=== PATIENT | female | born 1980 | race Caucasian/White ===

== ENCOUNTER 2016-04-09 10:36 | Inpatient (IN) | payer MEDICAID ==
[~2016-04-09] VITALS: Ht 157.5 cm; Wt 59.0 kg
--- NOTE | ~2016-04-09 | DS ---
PATIENT'S NAME: CRIS DARBY [facility] AGE: 35 Y [address] ROOM: [address] [place], [place] [address] LOCATION: GPCU ADMIT DATE: 04/09/2016 Discharge Summary DISCHARGE DATE: 04/13/2016 FAMILY PHYSICIAN: Damian Centeno MD ATTENDING PHYSICIAN: Brendan Antonio DISCHARGE DIAGNOSES: 1. Hypoxia. 2. Respiratory distress. 3. Chronic pain syndrome. HISTORY OF PRESENT ILLNESS: Please see history and physical dictated by Dr. Brendan Antonio. HOSPITAL COURSE: The patient admitted to the hospital secondary to hypoxia and respiratory distress. She was seen in consultation by Dr. Taylor as well as Dr. Cervantes. She was started on Zosyn 4.5 grams IV and Levaquin 750 mg IV in the emergency room. IV Zosyn was continued at 3.375 IV every 6 hours and Levaquin 750 mg IV q.24 hours. She was given Zofran 4 mg IV every 6 hours as needed for nausea. Cardiac enzymes, serial enzymes were done x3. Solu- Medrol 60 mg IV every 8 hours was started. DuoNeb q.4 hours. Her Solu-Medrol was increased to 125 mg IV every 6 hours. She was consented for bronchoscopy. Solu-Medrol was decreased and she was placed on oral prednisone 30 mg 1 tablet twice daily. She was scheduled for a stress echocardiogram in followup. DISCHARGE MEDICATIONS: 1. Prozac 20 mg daily. 2. Neurontin 800 mg 1 tablet 3 times daily. 3. MS Contin 30 mg 3 times daily as per Pain physician. 4. Zyprexa 20 mg at bedtime. 5. Topamax 100 mg at bedtime. 6. Zanaflex 4 mg twice daily. 7. Excedrin Migraine as needed. 8. Levaquin 750 mg daily for 6 days. 9. Prednisone 30 mg twice a day for 3 days, 30 mg once daily for 3 days, 20 mg once daily for 3 days, 10 mg once daily for 3 days. She is to follow up with Dr. Medina in [address] Damian Centeno in 2 weeks. Lab and x-ray, please see chart for details. PATIENT'S NAME: CRIS DARBY [facility] AGE: 35 Y [address] ROOM: [place] [address] [facility] ADMIT DATE: 04/09/2016 Discharge Summary DISCHARGE DATE: 04/13/2016 FAMILY PHYSICIAN: Damian Centeno MD ATTENDING PHYSICIAN: Brendan Antonio MD CSM/modl /[id number] d: 05/12/[id number] t: 05/25/16 2317, DISCHARGE SUMMARY
--- NOTE | ~2016-04-09 | HP ---
PATIENT'S NAME: CRIS NAZARIO [facility] AGE: 35 Y [address] ROOM: [address] [place], [place] [address] LOCATION: GPCU ADMIT DATE: 04/09/2016 History & Physical DISCHARGE DATE: FAMILY PHYSICIAN: Damian Centeno MD ATTENDING PHYSICIAN: AMANDA LARKIN DATE OF SERVICE: 04/09/2016 CHIEF COMPLAINT: "I am short of breath." HISTORY OF PRESENT ILLNESS: Ms. Nazario is a 35-year-old female with a past medical history significant for fibromyalgia and chronic back pain, on chronic narcotic therapy among several others, who presented as an admission to the [facility] PCU from the [facility] Emergency Department for pneumonitis with sepsis. The patient was in her usual state of health when she began experiencing some illness. She had a sore throat, and was fatigued as well as had some body aches starting approximately 7 to 10 days ago. About a week ago, the patient was seen by [facility]. She had a swab of the throat for rapid strep test as well as a throat culture and mono testing. She was put on amoxicillin at that time, and thought she was doing a little bit better. About three days later, the patient was called by the [facility] provider and told that she had a Staphylococcus infection, and was asked how she was doing. At that point in time, the patient thought that she was doing a little bit better. 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 The patient was having a significant difficulty with being short of breath with her work, and so she called back to [facility] and told them that she was not feeling well, and that she was having more shortness of breath. She was switched from amoxicillin to Bactrim and given albuterol inhaler. It did not seem to help her that much, and so the patient progressively got worse, and was subsequently brought to the Emergency Department for further evaluation and management. The patient was seen at [facility] today, and was allowed to go by private vehicle to the Emergency Department. Upon reaching the Emergency Room, the patient had initial vital signs with pulse of 113, respirations of 18, temperature of 98.6, and the oxygen saturation was 59% on room air. She was reporting difficulty with breathing. She had a blood pressure that was low end of normal. She was given some IV fluids as well as DuoNeb at that time. She was also put on high-flow oxygen. PATIENT'S NAME: CRIS NAZARIO [facility] AGE: 35 Y [address] ROOM: [place] [address] LOCATION: GPCU ADMIT DATE: 04/09/2016 History & Physical DISCHARGE DATE: FAMILY PHYSICIAN: Damian Centeno MD ATTENDING PHYSICIAN: AMANDA LARKIN She had a number of laboratories performed. D-dimer was elevated at 1.38. She had a WBC of 22.5, platelets of 49, and neutrophils of 91%. She had a CO2 of 16, albumin of 2.9, elevated CPK of 324, CK-MB of 5.4, and elevated troponin of 0.118. ProBNP was elevated at 3211, as well as TSH thyroid-stimulating hormone was 0.85. Procalcitonin was 0.58. Influenza was negative. She also had 10 to 20 white blood cells, as well as 2 to 5 red blood cells, moderate epithelial cells, moderate yeasts, moderate bacteria, and 2+ mucus. She had negative beta-hCG. The patient, because of elevated D-dimer, had a CT of the chest which showed patchy ground-glass infiltrates. She was started on Levaquin as well as Zosyn. Upon my discussion with the patient, the patient reported the story as noted above. She did complain of some shortness of breath. There are really no fever or chills. She had no other acute complaints at the time. ALLERGIES: SHE HAS TWO ALLERGIES. CIPRO CAUSED GI GASTROINTESTINAL UPSET, AND THE OTHER IS PAXIL. PAST MEDICAL HISTORY: 1. Chronic back pain, currently on long-term narcotic therapy. 2. Seasonal allergies. 3. Depression. 4. History of renal stone. PAST SURGICAL HISTORY: Ureteral stent placement bilaterally. FAMILY HISTORY: The patient's father is still alive, and was reported to have no major medical problems. The patient's mother and maternal grandmother and grandfather have all from lung cancer. There have all been smokers. PATIENT'S NAME: CRIS NAZARIO [facility] AGE: 35 Y [address] ROOM: [place] [address] LOCATION: GPCU ADMIT DATE: 04/09/2016 History & Physical DISCHARGE DATE: FAMILY PHYSICIAN: Damian Centeno MD ATTENDING PHYSICIAN: AMANDA LARKIN SOCIAL HISTORY: Occupational History: The patient was starting a new job at [employer]. Habits: She smokes about a half pack per day, and she has done so since age 12. No illicit drugs she reported to me. Marital Status: She lives at home with her three children, as well as her cousin's two children and her fiance. She has been with her fiance eight years, and they are getting soon. PHYSICAL EXAMINATION: VITAL SIGNS: As noted above. GENERAL: Ill and slightly toxic appearing adult female, in no acute distress, lying in bed. HEENT: Head: Normocephalic and atraumatic. Eyes: Conjunctivae were clear. Sclerae were white. Ears, Nose, and Throat: Mucous membranes are moist. HEART: Tachycardic, but no murmurs, rubs, clicks, or gallops. LUNGS: Slight wheeze was present, but otherwise, good air movement. ABDOMEN: Soft, nontender, and nondistended. Bowel sounds are positive. EXTREMITIES: Warm and well perfused. No clubbing, cyanosis, or edema. SKIN: No notable rashes. NEUROLOGICAL: The patient admits to being slightly confused. Otherwise, no focal deficits on her examination. LABORATORY DATA AND IMAGING STUDIES: As per history of present illness. IMPRESSION AND PLAN: A 35-year-old female with pneumonitis, urinary tract infection, and sepsis. 1. Pneumonitis with patchy infiltrates present on chest x-ray with acute hypoxic respiratory failure 2. Sepsis secondary to #1. 3. Acute cystitis. 4. Elevated cardiac enzymes and D-dimer. The patient also overall has a septic picture here. She definitely qualifies for sepsis, and then appropriately started on Zosyn and Levaquin. We will continue with those. I have also added Solu-Medrol to the patient's regimen. Both Cardiology and Pulmonology have been consulted. The patient was getting a stat echocardiogram as I was speaking to her. We will trend out her enzymes as they were elevated. I think this is likely to be a demand ischemia for this patient as she has likely been hypoxic for some time and did not overall know it. We will continue with high-flow oxygen and DuoNeb as needed. Respiratory Therapy to see and evaluate. Again, we will trend out her enzymes and have Cardiology see her. We will continue to very closely monitor the PATIENT'S NAME: CRIS NAZARIO [facility] AGE: 35 Y [address] ROOM: [id number] [place], [place] [address] LOCATION: [facility] ADMIT DATE: 04/09/2016 History & Physical DISCHARGE DATE: FAMILY PHYSICIAN: Damian Centeno MD ATTENDING PHYSICIAN: AMANDA LARKIN patient's fluid status. She does have an elevated BNP at 3211. 1. Tobacco abuse. The patient did not smoke since being coming ill. We will offer her a nicotine patch while she is in the hospital. 2. Chronic back pain. We will continue the patient on her current regimen overall. 3. Depression. The patient is not currently taking any medications, but we will just monitor her very closely. 4. Fluids. Normal saline at 100 mL/hr. 5. Electrolytes. Stable. Continue to monitor. 6. Nutrition. General diet. 7. Prophylaxis. The patient will benefit from heparin or Lovenox prophylaxis. 8. Code status. Full code per my discussion with the patient. 9. Disposition. The patient will be inpatient for likely a few days. As far as I know, the patient's primary care provider, Dr. Damian Centeno is in town. He will assume her care in the morning. If not, may consider to have hospitalist to see this patient as I will be out of town. AMANDA LARKIN MD BAB/modl /[id number] D: 153 T: 516 HISTORY & PHYSICAL
--- NOTE | ~2016-04-09 | CON ---
PATIENT'S NAME: MEH[facility]Z [facility] AGE: 35 Y [address] ROOM: [place] [id number] LOCATION: GPCU ADMIT DATE: 04/09/2016 Consultation DISCHARGE DATE: 04/13/2016 FAMILY PHYSICIAN: Damian Centeno MD ATTENDING PHYSICIAN: Brendan Antonio DATE OF CONSULTATION: 04/10/2016 REFERRING PHYSICIAN: Thanh Cervantes MD REASON FOR CONSULTATION: Acute respiratory failure. HISTORY OF PRESENTING ILLNESS: This is a 35-year-old female with a past medical history significant for fibromyalgia and chronic back pain, on chronic narcotic therapy among several others, who presented to the emergency department complaining of increased shortness of breath, apparently the patient has been complaining of shortness of breath for the past couple weeks. The patient has vent for help and she was given antibiotic, but she did not improve and subsequently continued to be very short of breath and was ended up in the emergency department where she was found to have an SpO2 in the 70s. The patient is an active smoker, she denied any illicit drug abuse, she denied any recent exposures to fumes, chemicals. She denied any inhalation of any drugs. She denied being around fumes. A CT scan of her chest revealed diffuse ground-glass opacities. The patient has denied any current chest pain, pleurisy, hemoptysis, nausea, vomiting, abdominal pain, and she continued to be hypoxic despite the antibiotics that she was given as an outpatient. She continued to deteriorate. PAST MEDICAL HISTORY: Includes, 1. Chronic back pain. 2. Seasonal allergies. 3. Depression. 4. History of renal stone. ALLERGIES: CIPRO CAUSED GI UPSET AND PAXIL. PATIENT'S NAME: CRIS DARBY [facility] AGE: 35 Y [address] ROOM: [address] [address] LOCATION: GPCU ADMIT DATE: 04/09/2016 Consultation DISCHARGE DATE: 04/13/2016 FAMILY PHYSICIAN: Damian Centeno MD ATTENDING PHYSICIAN: Brendan Antonio PAST SURGICAL HISTORY: Ureteral stent placement bilaterally. FAMILY HISTORY: The patient's father is still alive. He was reported to have no major medical problems. The patient's mother and maternal grandmother and grandfather have all from lung cancer. There have all been smokers. SOCIAL HISTORY: The patient was starting a new job at [employer]. She smokes about a half pack per day, and she has done so since age 12. No illicit drugs reported. She lives at home with her three children, as well as her cousin's two children and her fiance. She has been with her fiance for eight years, and they are getting soon. REVIEW OF SYSTEMS: A 10-point review of systems was done and otherwise negative other than mentioned in the history of presenting illness. LABORATORY DATA: Reviewed which revealed a D-dimer was elevated 1.38, white cell count 22.5, platelets 249, neutrophils were 91. She has CO2 of 16. Albumin is 2.1. Elevated CPK 324. CK-MB 1.4, and elevated troponins. Her proBNP was 3211 as well as TSH was 0.85. Procalcitonin was 0.58. Influenza was negative. She also had 10-20 white cell counts as well as 2-5 red cell counts, moderate epithelial cells, moderate yeast, moderate bacteria, and mucus. Negative beta HCG. The patient CT again revealed diffuse ground glass opacities. IMPRESSION: A 35-year-old with acute hypoxic respiratory failure. At the current point, the differential diagnosis will include, 1. Acute interstitial pneumonitis. 2. Acute eosinophilic pneumonitis, which is possibly the most appropriate diagnosis at the current point, and this also could be the beginning of acute respiratory distress syndrome secondary to an infection. I do believe that the patient has acute eosinophilic pneumonia. This may be due to exposure to drugs. PATIENT'S NAME: CRIS DARBY [facility] AGE: 35 Y [address] ROOM: [id number] [place] [id number] LOCATION: GPCU ADMIT DATE: 04/09/2016 Consultation DISCHARGE DATE: 04/13/2016 FAMILY PHYSICIAN: Damian Centeno MD ATTENDING PHYSICIAN: Brendan Antonio At the current point, I would recommend the following, 1. I would continue her current antibiotic including a piperacillin tazobactam for possible infection, although I do believe the patient will need possible bronchoscopy, but currently she is severely hypoxic and empirical treatment is warranted. I do not believe that this is an acute fungal infection as the CT picture does not support that, this could be PCP, if the patient is being more delayed immunocompromised which she does not appear to be. At the current point, I would recommend the following. 2. Start to increase her steroids to 125 mg q.6 hours. 3. If there is no significant improvement within the next 24-48 hours, then bronchoscopy would be warranted with transbronchial biopsy. 4. We will continue DuoNeb. 5. Nicotine patch for smoking cessation. 6. Smoking cessation counseling. 7. I agree with the antibiotics. 8. I do recommend that the patient continues to the steroids. 9. We will obtain manual differential of the cell count to evaluate for increase eosinophilic, but overall this is an acute eosinophilic pneumonia, not necessarily to have elevated eosinophils. 10. Sputum cultures. Thank you for allowing me to participate in the care of this patient. MD RAHUL PASCAL/shaquille /[id number] d: 04/16/16 1721 t: 04/21/16 1251, CONSULTATION REPORT
--- NOTE | ~2016-04-09 | ECHO ---
Transthoracic Echocardiography Report (TTE) Demographics Patient Name CRIS DARBY Date of Study 04/09/2016 Patient Number [id number] Visit Number [id number] Date of 1980 Room Number G6313 Gender Female Number Age 35 year(s) Referring Brandon Garcia Hoeing Row Boss Shiva Bowling Physician MD Jacobo Lux MD Physician Interpreting Brandon Garcia Third Hand Physician Supervising Ordering Brandon Garcia MD/MLP Physician Nurse Stress Inverter And Clipper Conclusions Contractility Score Summary Normal Left Ventricular contractility was noted. Summary The estimated left ventricular ejection fraction is 55-60% with normal WM.The left ventricle is normal in size and wall thickness. RHCs are mildly dilated. Mild to moderate tricuspid regurgitation by color Doppler. There is moderate pulmonary hypertension. The pulmonary pressure (RVSP) is 48 mmHg. Procedure Type of Study TTE procedure:2D Echocardiogram. Procedure Date Date: 04/09/2016 Start: 12:51 PM Study Location: ER Technical Quality: Good visualization Indications:Elevated cardiac enzymes and Chest pain. Appropriate Use Criteria: 9 Patient Status: STAT HR: 111 bpm BP: 97/66 mmHg M-Mode/2D Measurements LV Diastolic Dimension: 3.94 cm LV Systolic Dimension: 2.95 cm LV Septum Diastolic: 0.62 cm LV PW Diastolic: 0.69 cm AO Root Dimension: 2.2 cm Cardiac Output: 4.18 l/min LA Dimension: 2.3 cm EF Estimated: 55 % LVOT: 1.8 cm LVOT VTI: 14.8 cm RV Base: 2.27 cm LV Stroke volume: 37.64 ml RV Length: 6.59 cm TAPSE: 1.76 cm TDI-S': 11.7 cm/s Doppler Measurements AV Peak Velocity: 1.36 m/s MV Peak E-Wave: 0.7 m/s AV Peak Gradient: 7.4 mmHg MV Peak A-Wave: 0.82 m/s AV Mean Gradient: 4 mmHg MV E/A Ratio: 0.86 LVOT Peak Velocity: 0.97 m/s MV P1/2t: 38 msec TR Gradient:39.94 mmHg PV Peak Velocity: 1.32 m/s Estimated RAP:8 mmHg PV Peak Gradient: 6.97 mmHg Estimated RVSP: 48 mmHg Estimated PASP: 47.94 mmHg E' Septal Velocity: 0.08 m/s A' Septal Velocity: 0.12 m/s E' Lateral Velocity: 0.14 m/s A' Lateral Velocity: 0.09 m/s Findings Left Ventricle Normal left ventricle size and function. Right Ventricle RV is mildly dilated with normal function. Left Atrium Normal left atrial size. Right Atrium Mildly dilated RA. Mitral Valve Normal mitral valve structure and function. Aortic Valve Normal aortic valve structure and function. Tricuspid Valve Mild tricuspid regurgitation by color Doppler. There is moderate pulmonary hypertension. The pulmonary pressure (RVSP) is 48 mmHg. Pulmonic Valve Normal pulmonic valve structure and function. Pericardial Effusion No evidence of pericardial effusion. Miscellaneous Visualized portions of the aortic root and ascending aorta appear normal in size. Suboptimal subcostal window to evaluate the IVC and interatrial septum. Pleural Effusion No evidence of pleural effusion. Contractility Score LV regional wall motion:(0-Non visualized 1-Normal 2-Hypokinesis 3-Akinesis 4-Dyskinesis 5-Aneurysm) Signature dtt: Radha Taylor dtd: 04/09/16 1251 Physician Self Edit
--- NOTE | ~2016-04-09 | CON ---
PATIENT'S NAME: CRIS NAZARIO [facility] AGE: 35 Y [address] ROOM: [id number] [place], [place] [address] LOCATION: GPCU ADMIT DATE: 04/09/2016 Consultation DISCHARGE DATE: FAMILY PHYSICIAN: Damian Centeno MD ATTENDING PHYSICIAN: AMANDA ANTONIO DATE OF CONSULTATION: 04/09/2016 REFERRING PHYSICIAN: Thanh Cervantes MD A patient of Dr. Antonio. Dear Dr. Antonio: Thank you for asking me to see Ms. Nazario, who is a 35-year-old female patient, who came to the emergency room with shortness of breath of about 2 days' duration. Her oxygen saturation was very low, around 60s, and her chest x-ray revealed bilateral pneumonia. She had a CT of the chest with PE protocol done because of elevated D-dimer, which was negative for pulmonary emboli. Her BNP is elevated and her troponins are elevated as well. Her EKG is unremarkable. She is on about 4 to 5 L of oxygen with saturations staying around 90% to 92%. The patient appears to be on a lot of pain medications due to chronic joint pain and fibromyalgia for a number of years. About 2 weeks ago, she developed sore throat, went to the emergency room with a fever, and was found to have swollen glands. She has been having some cough. They checked her strep and mono, which were both negative. Cultures apparently grew Staph. She was started on antibiotics and she began to feel a little better. 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 She also has noticed for the past 2 days very significant chest pain in the middle of the chest, made significantly worse by deep breathing and swallowing. It seemed to be there for most of the time and it is not something that goes away in between. She does note that they also get worse if she becomes active. She has been in functional class 2 with no paroxysmal nocturnal dyspnea. She has always use 2 pillows to sleep. She has been lightheaded and dizzy for the past 2 days. There has been some palpitation without any ankle swelling. The patient has no history of hypertension or diabetes or elevated cholesterol. She is a current smoker. There is no family history of premature coronary artery disease. There is no prior history of RI or angina or nitroglycerin use. PATIENT'S NAME: CRIS NAZARIO [facility] AGE: 35 Y [address] ROOM: [id number] [place], [place] [address] [facility] ADMIT DATE: 04/09/2016 Consultation DISCHARGE DATE: FAMILY PHYSICIAN: Damian Centeno MD ATTENDING PHYSICIAN: AMANDA ANTONIO There is no history of rheumatic fever, heart murmur, heart failure, dilated or enlarged heart, or any diagnosed arrhythmias. MEDICATIONS: 1. Morphine sulfate 30 mg t.i.d. 2. Zanaflex 4 mg b.i.d. 3. Flexeril 10 mg at bedtime. 4. Gabapentin 800 mg t.i.d. 5. Excedrin Migraine 2 tablets b.i.d. p.r.n. for migraine. 6. Relpax 2 tablets b.i.d. p.r.n. for pain. 7. Hydrocodone, which is [place] 10/325, 2 tablets b.i.d. p.r.n. 8. Topamax 100 mg at bedtime. 9. Prozac 20 mg a day. 10. Zyprexa 20 mg at bedtime. ALLERGIES: CIPROFLOXACIN AND PAXIL. PAST MEDICAL HISTORY: 1. C-sections. 2. Kidney stones. 3. History of tubes being tied. SOCIAL HISTORY: The patient denies abusing alcohol. Her appetite and weight are stable. Her sleep is fair. She does not use any recreational drugs. FAMILY HISTORY: No premature coronary artery disease. REVIEW OF SYSTEMS: A 12-point review of systems revealed the following positives: 1. Migraine headaches. 2. Sinus secondary to allergies. 3. Depression. PHYSICAL EXAMINATION: VITAL SIGNS: Her blood pressure is in the 100 to 110 systolic, heart rate is in the 110 range with mild tachycardia, respiration is 20, and oxygen saturation is 90% to 91% on 4 L. HEENT: Normal. NECK: Supple with no JVD, thyromegaly, lymphadenopathy, or carotid bruit. HEART: PMI is not well located. First and second heart sounds are regular. There are no added sounds or rub or murmurs. PATIENT'S NAME: CRIS NAZARIO [facility] AGE: 35 Y [address] ROOM: [facility] [place] [place] [address] LOCATION: GPCU ADMIT DATE: 04/09/2016 Consultation DISCHARGE DATE: FAMILY PHYSICIAN: Damian Centeno MD ATTENDING PHYSICIAN: AMANDA ANTONIO CHEST: Clear to auscultation. ABDOMEN: Soft and nontender. EXTREMITIES: Reveal no edema. CENTRAL NERVOUS SYSTEM: Intact. ASSESSMENT: 1. Pleuritic chest pain. Her echocardiogram revealed normal ejection fraction. It is possible that she has myopericarditis at this time. 2. Possibility of hypoxia-mediated damage to her myocardium, cannot be excluded at this time. 3. Other than myocarditis, chance of this being coronary artery disease related problem even though she is a smoker, is rather remote at this time. RECOMMENDATIONS: We will wait for the enzymes to trend out. We will also give her a small dose of diuretics to see if that makes a difference. It is possible that she is beginning to start having ARDS secondary to the infection. For now, I will hold off the diuretic unless her condition gets worse. MD ROJELIO STEEN/shaquille /[id number] d: 04/09/16 2254 t: 04/14/16 1326, CONSULTATION REPORT
--- NOTE | ~2016-04-09 | ER ---
PATIENT'S NAME: CRIS DARBY [facility] AGE: 35 Y [address] ROOM: [place] [address] LOCATION: [facility] ADMIT DATE: 04/09/2016 ER/Outpatient Report DISCHARGE DATE: FAMILY PHYSICIAN: Damian Centeno MD ATTENDING PHYSICIAN: AMANDA ANTONIO TIME OF ARRIVAL: 1036 hours. TIME SEEN: 1036 hours. IDENTIFICATION: A 35-year-old female. CHIEF COMPLAINT: Shortness of breath. HISTORY OF PRESENT ILLNESS: The patient is a 35-year-old female who was seen by Chay Romo at [facility] and sent here for sats of 74% on room air. The patient has been ill for the last couple of weeks with shortness of breath and was seen in the [facility] a couple of different times. Last week, she was seen with a sore throat, had a negative strep test, but her boyfriend said their blood was positive for Staph and she was started on amoxicillin. She went back Wednesday, not any better; so, was started on Bactrim and a cough syrup. She was increasingly short of breath and confused for the last 2 days; so, she went back today, was found to be hypoxic, and sent here by private vehicle. The patient arrived here 25 minutes after they called from [facility] stating that she was becoming acutely short of breath, ashen, and cyanotic in color with an O2 sat of 59% on room air. She was immediately placed on O2 per nasal cannula at 5 L and her sats did slowly come up to 90% to 92% on the 5 L. She states she has had fever and chills at home. She was apparently febrile at [facility] with a temp of 100, cough is productive of yellow sputum, she is short of breath, and she has no fever here. PAST MEDICAL HISTORY: Allergies to Paxil and then she has an intolerance to Cipro, oral Cipro cause some nausea and vomiting. CURRENT MEDICATIONS: 1. Morphine 30 mg t.i.d. 2. Hydrocodone for breakthrough pain 10/325 b.i.d. p.r.n. 3. Gabapentin 800 mg. 4. Zanaflex 4 mg b.i.d. PATIENT'S NAME: CRIS DARBY [facility] AGE: 35 Y [address] ROOM: [id number] [place] [id number] LOCATION: GPCU ADMIT DATE: 04/09/2016 ER/Outpatient Report DISCHARGE DATE: FAMILY PHYSICIAN: Damian Centeno MD ATTENDING PHYSICIAN: AMANDA ANTONIO 5. Flexeril 15 mg at h.s. 6. Topamax 100 mg at h.s. 7. Relpax p.r.n. MEDICAL PROBLEMS: Fibromyalgia, kidney stones, chronic back problems, and migraine headaches. PRIOR SURGERY: section x3. SOCIAL HISTORY: Tobacco use, half-pack per day. Alcohol use, denies. The patient does have a significant other. She has 3 children. REVIEW OF SYSTEMS: All systems reviewed. FAMILY HISTORY: No pertinent family history identified. PHYSICAL EXAMINATION: VITAL SIGNS: Height 5 feet, 2 inches and weight 56.3 kg. Blood pressure 113/67, pulse 113, respirations 18, temp 98.6, and sats 59% on room air, 90% to 92% on 5 L per nasal cannula. GENERAL: A 35-year-old female, in obvious distress, hypoxic, and short of breath. HEENT: Head: Normocephalic, atraumatic. Ears: TMs translucent both ears. Eyes: Pupils equal and reactive to light and accommodation. Extraocular movements intact. Nose: Mucosa pink. No lesions or drainage. Mouth: No lesions. Pharynx benign. NECK: Supple. No lymphadenopathy. No nuchal rigidity. LUNGS: Clear to auscultation. HEART: Sinus tachycardia. No murmur, rub, or gallop. ABDOMEN: Bowel sounds present. Soft, nondistended, nontender. SKIN: [place], warm, and dry. No lesions or rashes noted. NEURO: The patient is alert and oriented x4. Cranial nerves 2 through 12 grossly intact. Motor strength 5/5 throughout. Sensation is intact to light touch. She is oriented x4. The only thing she does seem to get is a little bit confused at the details of things and her boyfriend said she has been confused for the last 2 days. EMERGENCY DEPARTMENT COURSE: An IV was initially started. Labs were obtained. DuoNeb was given. ABGs were drawn. Urine hCG is negative. UA: Specific gravity 1.020, pH,6.0, trace of leukocytes, 10-20 white cells, 5-10 epithelial cells. 2-5 red blood PATIENT'S NAME: CRIS DARBY [facility] AGE: 35 Y [address] ROOM: [id number] [place], [place] [address] LOCATION: GPCU ADMIT DATE: 04/09/2016 ER/Outpatient Report DISCHARGE DATE: FAMILY PHYSICIAN: Damian Centeno MD ATTENDING PHYSICIAN: AMANDA ANTONIO cells, and moderate bacteria. Culture pending. Influenza A and B negative. Procalcitonin is elevated at 0.58. Pro-BNP is elevated at 3211. TSH 0.853. Sodium 135, potassium 3.8, chloride 105, CO2 low at 16, BUN 17, creatinine 0.9, blood sugar 116, albumin low at 2.9, globulin elevated at 5.5, alk phos 170, AST 80, GFR greater than 60, CPK 324, CK-MB 5.4, troponin I 0.118. Hemoglobin 12.4, hematocrit 37.7, platelets 49, white count elevated at 22.5 with 91% neutrophils. INR 1.0. D-dimer elevated at 1.38. ABGs on 5 L per nasal cannula pH is 7.37, pCO2 29, pO2 64, and bicarb 16.8. EKG sinus tachycardia at 108 beats per minute, nonspecific ST-T wave changes are noted, no prior EKG available for comparison at this time. One-view chest x-ray, diffuse bilateral patchy infiltrate present. CT scan PE protocol, no evidence of pulmonary embolus. The patient does have diffuse ground-glass pulmonary opacities. Echocardiogram stat at the bedside, EF is 55% to 60% with normal wall motion, [id number] tricuspid regurgitation, mildly dilated right heart chambers, and moderate pulmonary hypertension. IMPRESSION: 1. Pneumonia. 2. Severe sepsis. The patient has been hemodynamically stable here in the ER with a systolic blood pressure greater than 100. The patient did receive intravenous fluids at 100 mL/hr. Antibiotic Zosyn and Levaquin were initiated in the emergency room. Cultures have all been done including urine culture and blood cultures and those are pending. 3. Urinary tract infection, Levaquin 750 intravenous. 4. Acute congestive heart failure with elevated pro-BNP of 3211. 5. Acute coronary syndrome with elevated cardiac enzymes, probably related to hypoxia. 6. Acidosis with CO2 of 16 and some mixed acidosis. 7. Hypoalbuminemia. 8. Sinus tachycardia. 9. Chronic back pain, on chronic narcotics. 10. Dilated right heart chambers per echocardiogram. 11. Moderate tricuspid regurgitation. 12. Moderate pulmonary hypertension. PLAN: Plan for admission to PCU by Dr. Antonio for Dr. Damian Centeno with Cardiology consultation with Dr. Taylor and Pulmonology consultation with Dr. Cervantes. The patient went to the floor in improved, but guarded condition. She received a total of 300 mL of IV fluids, had 30 mL of urine output, Zosyn 4.5 g IV, Levaquin 750 mg IV, Tylenol 1000 mg p.o., O2 at 5 L per nasal cannula, and 45 minutes of critical care was spent with this patient. PATIENT'S NAME: CRIS DARBY [facility] AGE: 35 Y [address] ROOM: [place] [address] LOCATION: GPCU ADMIT DATE: 04/09/2016 ER/Outpatient Report DISCHARGE DATE: FAMILY PHYSICIAN: Damian Centeno MD ATTENDING PHYSICIAN: AMANDA ANTONIO STEVE LEAL MD CAR/modl /[id number] d: 04/09/16 2357 t: 04/23/16 0702, OUTPATIENT REPORT
[~2016-04-09 10:36] MED LIST: BACTRIM DS1 TAB PO; FLEXERIL10 MG PO; MS CONTIN30 MG PO; NEURONTIN800 MG PO; PROZAC20 MG PO; ZANAFLEX4 M2 PO; ZYPREXA ORALLY10 MG PO
[2016-04-09 11:05] LABS: BASOPHIL % 0.1 %; HEMATOCRIT 37.7 % (33.0-46.0); HEMOGLOBIN 12.4 g/dL (11.0-15.0); IMMATURE GRANULOCYTE # 0.1 K/uL (0.0-0.3); IMMATURE GRANULOCYTE % 0.5 %; LYMPHOCYTE # 1.3 K/uL (0.8-4.0); LYMPHOCYTE % 5.6 %; MCH 28.5 pg (27.0-34.0); MCHC 32.9 gm/dL (32.0-36.5); MCV 86.7 fl (83.0-98.0); MONOCYTE # 0.5 K/uL (0.0-1.0); MONOCYTE % 2.1 %; MPV 9.6 fl (9.4-12.4); NEUTROPHIL # (ANC) 20.6 K/uL (1.8-7.8); NEUTROPHIL % 91.7 %; NRBC % 0 /100WBC (0-0.00); PLATELET COUNT 489 K/uL (150-450); RBC 4.35 M/uL (3.50-5.50); WBC 22.5 K/uL (4.0-11.0)
[2016-04-09 11:10] LABS: PTT 33 SECONDS (25-32)
[2016-04-09 11:14] LABS: BICARBONATE 16.8 mmol/L (18.0-23.0); PCO2 29 mmHg (35-45); PO2 64 mmHg (80-90)
[2016-04-09 11:27] LABS: ALBUMIN 2.9 gm/dL (3.5-5.0); ALK PHOS 170 IU/L (33-138); ALT 30 IU/L (12-78); AST 80 IU/L (10-40); BLOOD UREA NITROGEN 17 mg/dL (6-24); CALCIUM 8.9 mg/dL (8.5-10.5); CHLORIDE 105 mMol/L (96-110); CPK 324 IU/L (21-215); CREATININE 0.9 mg/dL (0.5-1.1); ESTIMATED GFR (MDRD EQUATION) > 60; POTASSIUM 3.8 mMol/L (3.7-5.1); SODIUM 135 mMol/L (135-145); TOTAL BILIRUBIN 0.4 mg/dL (0.0-1.5); TOTAL PROTEIN 8.4 g/dL (6.0-8.4)
[2016-04-09 11:29] LABS: ANION GAP 17.8 (10.0-19.0); CO2 16 mMol/L (22-32)
[2016-04-09 11:37] LABS: BLOOD URINE 250 /UL (NEGATIVE); COLOR URINE YELLOW (YELLOW); GLUCOSE URINE NEGATIVE (NEGATIVE); KETONE URINE 15 mg/dL (NEGATIVE); LEUKOCYTES URINE 25 /UL (NEGATIVE); NITRITE URINE NEGATIVE (NEGATIVE); PROTEIN URINE 30 mg/dL (NEGATIVE); TURBIDITY URINE CLEAR (CLEAR); UROBILINOGEN URINE 4 mg/dL (NORMAL)
[2016-04-09 11:48] LABS: BACTERIA URINE MODERATE (NEGATIVE); MUCUS URINE 2+ (NEGATIVE); YEAST URINE MODERATE (NEGATIVE)
[2016-04-09] MEDS ORDERED: EXCEDRIN MIGRA1 EACH PO (14:27)
[2016-04-09] MEDS ORDERED: ELETRIPTAN PO (14:28)
[2016-04-09] MEDS ORDERED: NORCO 10-325 T1 EACH PO ×2 (14:29)
[2016-04-09] MEDS ORDERED: ZYPREXA20 MG PO (14:33)
[2016-04-09] MEDS ORDERED: PROZAC20 MG PO (14:33)
[2016-04-09] MEDS ORDERED: TOPAMAX100 MG PO (14:33)
--- NOTE | 2016-04-09 15:12 | NUR ---
Pt is 35 y/o female admit for pneumonia for . Pt drowsy and not feeling well, came through ED. Allergies to Cipro and Paxil. Hx migraines,sinus problems,frequent UTI's,kidney stones,gerd,constipation,anxiety,depression, bipolar,PTSD. PT states a week ago she didn't feel good. Had sore throat,fatigue,non-prod cough,and tight congested chest. With no improvement she went to [facility] and had sats in the 60's. Sent to ED for further evaluation. Resides at home with her significant other and children.
--- NOTE | 2016-04-09 17:10 | NUR ---
Significant Event: A/OX3, FORGETFUL, SLEEPY ON/OFF THROUGHOUT SHIFT. PT. GETS UP MIN ASSIST TO BSC, DESATS QUICKLY WHEN UP AND MOVING AROUND. VSS ON 6L PER NC. TYLENOL GIVEN AT 1600 FOR COMPLAINTS OF BACK PAIN. HOME MEDS REORDERED. LEVAQUIN & ZOSYN STARTED IN ED. NS RUNNING @ 100mL/HR TO L)WRIST IV. DR. BLANDON WILL SEE PT. LATER WHEN BACK FROM OUT-REACH THIS EVENING. COOPERATIVE WITH CARES. Follow up: CONTINUE WITH POC.
[2016-04-10 02:13] LABS: BARBITURATE NEGATIVE (NEGATIVE); COCAINE NEGATIVE (NEGATIVE)
[2016-04-10 02:22] LABS: AMPHETAMINE NEGATIVE (NEGATIVE); OPIATES POSITIVE (NEGATIVE)
[2016-04-10 04:24] LABS: BASOPHIL % 0.1 %; HEMATOCRIT 33.9 % (33.0-46.0); HEMOGLOBIN 11.1 g/dL (11.0-15.0); IMMATURE GRANULOCYTE # 0.1 K/uL (0.0-0.3); IMMATURE GRANULOCYTE % 0.5 %; LYMPHOCYTE % 6.8 %; MCH 28.2 pg (27.0-34.0); MCHC 32.7 gm/dL (32.0-36.5); MONOCYTE # 0.1 K/uL (0.0-1.0); MONOCYTE % 0.6 %; MPV 9.4 fl (9.4-12.4); NRBC % 0 /100WBC (0-0.00); PLATELET COUNT 432 K/uL (150-450); RBC 3.94 M/uL (3.50-5.50); WBC 14.1 K/uL (4.0-11.0)
[2016-04-10 04:44] LABS: ALBUMIN 2.4 gm/dL (3.5-5.0); ALK PHOS 152 IU/L (33-138); ALT 23 IU/L (12-78); ANION GAP 12.3 (10.0-19.0); AST 44 IU/L (10-40); BLOOD UREA NITROGEN 21 mg/dL (6-24); CALCIUM 8.8 mg/dL (8.5-10.5); CHLORIDE 111 mMol/L (96-110); CO2 19 mMol/L (22-32); CREATININE 0.7 mg/dL (0.5-1.1); ESTIMATED GFR (MDRD EQUATION) > 60; POTASSIUM 3.3 mMol/L (3.7-5.1); SODIUM 139 mMol/L (135-145); TOTAL PROTEIN 7.5 g/dL (6.0-8.4)
[2016-04-10 04:45] LABS: TOTAL BILIRUBIN 0.3 mg/dL (0.0-1.5)
--- NOTE | 2016-04-10 04:48 | NUR ---
Significant Event: Patient is alert/oriented x3, forgetful at times. O2 turned up to 6L at beginning of shift. Patient's O2 sats did increase to 95% with deep inspirations, but shifted back and forth from mid 80's to 90's with her baseline respiratory effort. Around 2300 patient was noted to sustain mainly in mid 80's on 6L O2 since she was asleep. Respiratory therapist notified and she contacted Dr. Antonio; order obtained to put patient on high flow oxygen. Patient's O2 sats have improved significantly. Currently on high flow O2 50% FiO2 with O2 sats mid 90's while asleep and upper 90's while awake. Other vital signs are stable. Scheduled MS Contin given and PRN [place] given x1 last night. Dr. Cervantes rounded on patient around shift change last evening and discussed performing a bronchoscopy on 04/10/16. Patient has been NPO for that. Follow up: Risks/benefits/alternatives still need to be discussed with patient and documented. Permits are in the chart.
--- NOTE | 2016-04-10 12:31 | NUR ---
Introduced self and care management services to patient. Lives in [place] with boyfriend. Denies concerns about going home on discharge, denies needs. Will follow.
--- NOTE | 2016-04-10 17:11 | NUR ---
Significant Event: VSS AND CONTINUES ON HI-ZAY NC AT 50-60% FIO2; DID TRY TO WEAN TO 6L/NC THIS AM AND DE-SATTED TO 84-85%. BRONCHOSCOPY CANCELLED PER DR. BLANDON DUE TO RESPIRATORY CONDITION TODAY; MAY DO IN THE NEXT FEW DAYS. IV ABX AND SOLUMEDROL CONTINUED. SCHEDULED PAIN MEDS GIVEN WITH GOOD PAIN CONTROL OF CHRONIC PAIN. UP TO BSC AND VOIDS WITH ADEQUATE UOP. LS COARSE TO LOWER LOBES. SLEEPS ON/OFF FOR ALL SHIFT. Follow up: CONTINUE PLAN OF CARE; RESP.STATUS.
--- NOTE | 2016-04-11 05:26 | NUR ---
Significant Event:A/Ox3. Afebrile. High Flow weaned to 35% FiO2, LS diminished with crackles in the bases. Transfers 1 assist to BSC. Voids with no difficulty. IV ATB continued. PIV to L)hand can be saline locked when no ATB due. Follow up:Continue to monitor respiratory status.
--- NOTE | 2016-04-11 17:21 | NUR ---
Significant Event: VSS WITH RESP STATUS IMPROVING. HIGH-FLOW NC WEANED TO 3L PER NC THEN DOWN TO 1L PER NC THIS AFTERNOON. ATTEMPTED TO WEAN TO RA WITH SATS 86%. 1L O2 REPLACED AND CRACKLES CONTINUE TO BE HEARD TO LLL. AMBULATE IN [place] AND TOOK SHOWER THIS AFTERNOON. PIV ACCIDENTLY DC'D BY PATIENT TO LEFT WRIST. NEW PIV TO R) POST FA 20G WITH IV ATB SCHEDULED. OTHERWISE SL'D. REFUSED MEALS BUT IS INTAKING PO FLUIDS. VOIDS PER BATHROOM. NO BM TODAY. CHRONIC PAIN CONTROLLED WITH SCHEDULED HOME MEDS. KCL INITIATED TODAY WITH K+ 3.3 ON APRIL 10. Follow up: LABS AND EKG IN AM. CONT TO MONITOR PER PLAN OF CARE.
[2016-04-12 04:11] LABS: BASOPHIL % 0.1 %; HEMATOCRIT 32.1 % (33.0-46.0); HEMOGLOBIN 10.4 g/dL (11.0-15.0); IMMATURE GRANULOCYTE # 0.2 K/uL (0.0-0.3); IMMATURE GRANULOCYTE % 1.1 %; LYMPHOCYTE # 1.3 K/uL (0.8-4.0); LYMPHOCYTE % 9.7 %; MCH 27.8 pg (27.0-34.0); MCHC 32.4 gm/dL (32.0-36.5); MCV 85.8 fl (83.0-98.0); MONOCYTE # 0.3 K/uL (0.0-1.0); MONOCYTE % 2.3 %; MPV 9.1 fl (9.4-12.4); NEUTROPHIL # (ANC) 11.5 K/uL (1.8-7.8); NEUTROPHIL % 86.8 %; NRBC % 0 /100WBC (0-0.00); PLATELET COUNT 420 K/uL (150-450); RBC 3.74 M/uL (3.50-5.50); RDW-CV 18.6 % (11.9-14.6); WBC 13.3 K/uL (4.0-11.0)
[2016-04-12 04:31] LABS: ALBUMIN 2.3 gm/dL (3.5-5.0); ALK PHOS 99 IU/L (33-138); ALT 26 IU/L (12-78); ANION GAP 14.3 (10.0-19.0); AST 21 IU/L (10-40); BLOOD UREA NITROGEN 18 mg/dL (6-24); CALCIUM 8.3 mg/dL (8.5-10.5); CHLORIDE 110 mMol/L (96-110); CO2 21 mMol/L (22-32); CREATININE 0.7 mg/dL (0.5-1.1); ESTIMATED GFR (MDRD EQUATION) > 60; POTASSIUM 3.3 mMol/L (3.7-5.1); SODIUM 142 mMol/L (135-145); TOTAL PROTEIN 6.2 g/dL (6.0-8.4)
[2016-04-12 04:32] LABS: TOTAL BILIRUBIN 0.2 mg/dL (0.0-1.5)
--- NOTE | 2016-04-12 04:35 | NUR ---
Significant Event:Patient weaned to RA while awake but placed back on 1L/NC while sleeping to keep sats >90%. Other VSS. Up ad kenya in the room. Ambulated in the hallway x1 lap with no oxygen and had no c/o SOB. PIV to R)FA. Follow up:Chest xray and EKG this AM. Continue with IV ATB and steroids.
--- NOTE | 2016-04-12 17:15 | NUR ---
Significant Event: VSS WITH O2 WEANED FROM 1L PER NC DURING NIGHT TO RA DURING DAY WITH SATS LOW 90'S. SLIGHTLY COARSE TO BILATERAL LUNG BASES. NO C/O PAIN, ONLY CHRONIC FIBRAMYALGIA MAINTAINED WITH SCHEDULED HOME MEDS. IV ATB CONT SCHEDULED. UP AD SILVIA TO BATHROOM AND IN [place] WITH FAMILY. RN TOOK OUTSIDE FOR FRESH AIR WITH ORDER FROM MD STATING OK TO GO OUTSIDE WITH NURSE AND NO SMOKING. Follow up: CONT TO MONITOR RESP STATUS.
--- NOTE | 2016-04-13 04:55 | NUR ---
Significant Event:A/Ox3. Afebrile. VSS. Patient and this nurse went outside prior to doors closing for fresh air and ambulated in hallways with no SOB. HR while walking increased to 110-120s, when resting in room HR 80-90s. PRN [place] given at the start of shift at 1800. Pain well controlled with home medications regiman. Follow up:Continue with IV ATB. to see today.
--- NOTE | 2016-04-13 17:22 | NUR ---
Significant Event: AFEBRILE. VSS ON RA. NORCO 2 TABS REQUESTED AROUND 1200 WITH RELIEF NOTED TO LOW BACK PAIN(CHRONIC). UP INDEPENDENTLY. PIV TO R) POST FA SL'D WITH SCHEDULED ATB CONTINUED. IV SOLUMEDROL CHANGED TO PO PREDNISONE BY PULMONOLOGY. DR ALMANZAR STILL TO SEE. Follow up: HOME POSSIBLY TOMORROW. MONITOR SATS WHILE AT REST/SLEEPING.
[2016-04-13] MEDS ORDERED: K-TAB ER20 MEQ PO (17:28)
[2016-04-13] MEDS ORDERED: ZANAFLEX4 MG PO (17:29)
[2016-04-13] MEDS ORDERED: LEVAQUIN750 MG PO (17:32)
[2016-04-13] MEDS ORDERED: DELTASONE10 MG PO (17:33)
--- NOTE | 2016-04-13 19:00 | NUR ---
PATIENT GIVEN WRITTEN DISMISSAL INSTRUCTIONS INCLUDING NEW HOME MEDICATION LIST WITH INFORMATION ON NEW MEDS, PRESCRIPTIONS, AND FOLLOW-UP APPOINTMENT TIMES. REFUSES INFORMATION ON SMOKING AND TOBACCO CESSATION. PATIENT STATES UNDERSTANDING OF INFORMATION DISCUSSED WITH RN. PIV TO R) FA DC'D WITH AMY APPLIED. TELEMETRY DC'D AND PATIENT DRESSED IN OWN CLOTHING. PATIENT WALKED TO FRONT OF [facility] WITH RN, PATIENT BELONGINGS AND FAMILY MEMBER AT 1850.
== END 2016-04-13 18:50 | disposition disaster alternative care site (69) | DRG 871 ==
LOC: GMED 10:36 → GPCU 12:53
PROVIDERS: Family Medicine; ADMIT Family Medicine
DX: A41.9 Sepsis, unspecified organism (principal); J18.9 Pneumonia, unspecified organism; J96.01 Acute respiratory failure with hypoxia; I27.2 Other secondary pulmonary hypertension; I24.9 Acute ischemic heart disease, unspecified; I50.9 Heart failure, unspecified; E88.09 Other disorders of plasma-protein metabolism, not elsewhere classified; N30.00 Acute cystitis without hematuria; G89.29 Other chronic pain; F32.9 Major depressive disorder, single episode, unspecified; M79.7 Fibromyalgia; Z87.891 Personal history of nicotine dependence; J30.9 Allergic rhinitis, unspecified; Z87.442 Personal history of urinary calculi; G43.909 Migraine, unspecified, not intractable, without status migrainosus; I07.1 Rheumatic tricuspid insufficiency
CPT/HCPCS: J1956; J2543; J2930; J7030; J7050; J7512; Q9967

== ENCOUNTER → 2016-05-11 | Outpatient (CLI) | payer MEDICAID ==
[~2016-05-11] MED LIST changes: +DELTASONE10 MG PO; +ELETRIPTAN PO; +EXCEDRIN MIGRA1 EACH PO; +K-TAB ER20 MEQ PO; +LEVAQUIN750 MG PO; +NORCO 10-325 T1 EACH PO; +TOPAMAX100 MG PO; +ZANAFLEX4 MG PO; +ZYPREXA20 MG PO
--- NOTE | ~2016-05-11 | ECHO ---
Stress Echocardiography Report Demographics Patient Name CRIS DARBY Date of Study 05/11/2016 Patient Number [id number] Visit Number [id number] Date of 1980 Room Number Gender Female Number Age 35 year(s) Referring Brandon Garcia Utility Agent Eliana Crenshaw Physician MD RD Jacobo Lux MD Physician Interpreting Brandon Garcia Rack Puncher Physician MD Supervising Brandon Garcia Ordering Brandon Garcia MD/MARTELL HANSON Physician MD Nurse Austin Gutierrez RN Stress Process Expert [place] RVT, RDCS Conclusions Summary DURATION:7 mins 22 sec. ACHEIVED:85% MPHR. METs:9 METS. DP:27 K. No chest pain. Reason for termination:Fatigue and SOB. No EKG changes of ischemia. No arrythmias DTS:6 (Low risk). ECHO:No inducible ischemia. Procedure Type of Study Stress procedure:Treadmill Stress Echo w/o Contrast. Procedure Date Date: 05/11/2016 Start: 01:20 PM Study Location: Echo Lab Patient Status: Routine Rhythm: NSR Stress Predicted HR: 185 bpm Signature dtt: Radha Taylor dtd: 05/11/16 1320 Physician Self Edit
== END | disposition disaster alternative care site (69) ==
LOC: GCAR 13:00 → GRAD 05-14 07:15
DX: R09.02 Hypoxemia (principal); R06.02 Shortness of breath; R53.83 Other fatigue; Z53.8 Procedure and treatment not carried out for other reasons

== ENCOUNTER 2016-05-24 18:15 | Emergency (ER) | payer MEDICAID ==
--- NOTE | ~2016-05-24 | ER ---
PATIENT'S NAME: CRIS DARBY [facility] AGE: 35 Y [address] ROOM: [place] [address] LOCATION: [facility] ADMIT DATE: 05/24/2016 ER/Outpatient Report DISCHARGE DATE: 05/24/2016 FAMILY PHYSICIAN: Damian Centeno MD ATTENDING PHYSICIAN: Darien Ross Time of Arrival: 1816 hours. Time of Evaluation: 1820 hours. CHIEF COMPLAINT: Headache. HISTORY OF PRESENT ILLNESS: The patient states that she has had a right-sided headache that began 3 hours ago. It is similar to headaches that she has had in the past. She is nauseated, but has not vomited. Does have photophobia. Describes the pain as a throbbing and sharp. She has taken her medications today without any relief. ALLERGIES: ON HER CHART AND REVIEWED BY ME. MEDICATIONS: On her chart and reviewed by me. PAST MEDICAL HISTORY: Includes kidney stones, migraine headaches, recently hospitalized for sepsis, pneumonia, chronic back pain. PAST SURGICAL HISTORY: x3, tubal ligation. SOCIAL HISTORY: She presents to the ER accompanied by her significant other. Denies use of tobacco, drugs, or alcohol. REVIEW OF SYSTEMS: All negative other than those mentioned in the HPI. PHYSICAL EXAMINATION: VITAL SIGNS: She weighs 56 kg, blood pressure is 145/70, pulse is 70, respirations 16, temperature of 98, O2 saturation is 93% on room air. GENERAL: She is awake, alert, and oriented x4. SKIN: Her skin is pink, warm, and dry. RESPIRATIONS: Even and nonlabored. PATIENT'S NAME: CRIS DARBY [facility] AGE: 35 Y [address] ROOM: [place] [address] LOCATION: [facility] ADMIT DATE: 05/24/2016 ER/Outpatient Report DISCHARGE DATE: 05/24/2016 FAMILY PHYSICIAN: Damian Centeno MD ATTENDING PHYSICIAN: Darien Ross NEUROLOGIC: She walked in with a steady even gait. Neurologically is intact. LUNGS: Lung sounds are clear throughout. HEART: Regular rate and rhythm. ABDOMEN: Soft, nondistended. Bowel sounds are present. EMERGENCY DEPARTMENT COURSE: The patient was given Toradol 60 mg IM, Phenergan 50 mg IM, allowed to go home. IMPRESSION: Migraine headache. PLAN: Home, rest, fluids. Continue her current medications. If headache is not improved within the next 24 hours, she should contact her primary provider or return to the ER, she verbalized understanding. STEPHANI YARBROUGH APRN FOR DO MYNOR MARRERO/shaquille /[id number] d: 05/24/16 2304 t: 06/02/16 0512, OUTPATIENT REPORT
== END 2016-05-24 18:34 | disposition disaster alternative care site (69) ==
LOC: GMED 18:15
DX: G43.909 Migraine, unspecified, not intractable, without status migrainosus (principal); M54.9 Dorsalgia, unspecified; G89.29 Other chronic pain; Z87.442 Personal history of urinary calculi; Z98.51 Tubal ligation status
CPT/HCPCS: J1885; J2550

== ENCOUNTER → 2016-05-29 | Outpatient (CLI) | payer MEDICAID ==
--- NOTE | ~2016-05-29 | PUL ---
PATIENT'S NAME: CRIS DARBY [facility] AGE: 35 Y [address] ROOM: [place] [address] LOCATION: [facility] ADMIT DATE: 05/29/2016 Pulmonary DISCHARGE DATE: FAMILY PHYSICIAN: Damian Centeno MD ATTENDING PHYSICIAN: Radha Taylor NAME OF PROCEDURE: Pulmonary Function Test DATE OF PROCEDURE: May 29, 2016 TECH: GERARD Palmer REASON FOR EXAM: Shortness of breath RESULTS: 1. FVC was 2.79 liters which is 80% of predicted and low, FEV1 was 2.21 liters which is 76% of predicted and low, and FEV1/FVC was 79% and normal for patient's demographics. The flow volume curve did not reveal any significant airflow limitation. After bronchodilator administration FVC decreased to 2.78 liters and FEV1 increased to 2.22 liters which is a 1% increase. FEV1/FVC was 80%. 2. DLCO and adjusted DLCO were 13 which is 65% of predicted and normal. 3. Total lung capacity was 4.3 liters which is 91% of predicted and normal, and residual volume was 1.5 liters which is 102% of predicted and normal. 4. pH was 7.39, pCO2 was 46, PO2 was 83 while on room air. The base excess was 2.3. PHYSICIAN INTERPRETATION: The patient has no airflow limitation and no significant bronchodilator response. Her diffusion capacity is normal. There is no evidence of restrictive lung disease. She has mild respiratory acidosis with adequate metabolic compensation and no hypoxia at rest on room air. There is also nonspecific decrease in FEV1 and FVC which can be seen in chronic airway disease. Clinical correlation is advised. MD PREETI BANKS/mellisa /[id number] dtt: 06/03/16 1542 , ANKUSH SMITH dtd: 06/03/16 1212
[2016-05-29 13:51] LABS: BICARBONATE 27.8 mmol/L (18.0-23.0); PCO2 46 mmHg (35-45); PO2 83 mmHg (80-90)
== END | disposition disaster alternative care site (69) ==
LOC: GRTH 05-28 11:00
PROVIDERS: Internal Medicine Interventional Cardiology
DX: R06.02 Shortness of breath (principal)

== ENCOUNTER 2016-06-09 20:43 | Emergency (ER) | payer MEDICAID ==
--- NOTE | ~2016-06-09 | ER ---
PATIENT'S NAME: CRIS [facility] AGE: 35 Y [address] ROOM: [place] [address] LOCATION: [facility] ADMIT DATE: 06/09/2016 ER/Outpatient Report DISCHARGE DATE: 06/09/2016 FAMILY PHYSICIAN: Damian Centneo MD ATTENDING PHYSICIAN: Rach Ram Time of Patient's Arrival: 2042 hours. Time of Patient's Evaluation: 2054. CHIEF COMPLAINT: Migraine headache. HISTORY OF PRESENT ILLNESS: This is a 35-year-old female who presents to the ER with migraine headache, started approximately 2 hours prior to arrival. The patient has a history of migraines and is similar to her previous headaches and is located on the right side of her forehead. States it is causing her to have photophobia and nausea. She has had no recent illness. No fever or chills. No other problems at this time. ALLERGIES: NO KNOWN ALLERGIES. MEDICATIONS: Please see medication list in nurse's notes. PAST MEDICAL HISTORY: Chronic back pain and migraines. PAST SURGERIES: x3, tubal ligation, and back surgery. SOCIAL HISTORY: Denies smoking, drug, or alcohol use. REVIEW OF SYSTEMS: A 10-point review of systems was completed and was negative with the exception of those discussed in the HPI. PHYSICAL EXAMINATION: VITAL SIGNS: Height 5 feet 2 inches stated, weight 58.5 kg taken, blood pressure is 135/85, pulse 74, respirations 16, temperature is 97.6 degrees tympanically, and saturations 94% on room air. [place] Coma Score is 15. GENERAL: Alert, calm, well-developed female, in mild distress. HEENT: Head: Normocephalic. Eyes: Pupils are equal and reactive to light. PATIENT'S NAME: CRIS [facility] AGE: 35 Y [address] ROOM: [place] [address] LOCATION: [facility] ADMIT DATE: 06/09/2016 ER/Outpatient Report DISCHARGE DATE: 06/09/2016 FAMILY PHYSICIAN: Damian Centeno MD ATTENDING PHYSICIAN: Rach Ram Ears: TMs display good light reflexes bilaterally. Auditory canals clear. Nose: Turbinates pink with no drainage. Throat: No exudates or erythema. Does display moist mucous membranes. LUNGS: Clear to auscultation bilaterally. No wheezes or crackles. Normal respiratory effort. HEART: Regular rate and rhythm. EXTREMITIES: No clubbing or cyanosis. She does have full range of motion of all limbs. SKIN: Warm, dry, and intact. LABORATORY DATA AND X-RAYS: None were done. IMPRESSION: Migraine headache. ASSESSMENT/PLAN: Did review the patient's chart. We did give the patient 60 mg of Toradol and 50 mg of Phenergan IM here in the emergency room. She did tolerate this well. We will dismiss her to home. She needs to continue to push fluids, monitor her symptoms, and follow up with her primary care physician if no better. The patient understands and agrees with care. TERRY KING PA-C FOR MD ALEXEI SMITH/[place]quille /[id number] d: 06/10/16 0113 t: 06/11/16 0539, OUTPATIENT REPORT
== END 2016-06-09 21:05 | disposition disaster alternative care site (69) ==
LOC: GMED 20:43
DX: G43.909 Migraine, unspecified, not intractable, without status migrainosus (principal); M54.9 Dorsalgia, unspecified; G89.29 Other chronic pain; Z98.890 Other specified postprocedural states; Z98.51 Tubal ligation status; Z79.899 Other long term (current) drug therapy
CPT/HCPCS: J1885; J2550